=== PATIENT | male | born 1980 | race Caucasian/White ===

== ENCOUNTER 2024-01-08 06:46 | Day surgery (SDC) | payer MEDICAID ==
[~2024-01-08] VITALS: Ht 177.8 cm; Wt 77.1 kg
[2024-01-08] MEDS ORDERED: MEPERIDINE HCL/PF 25 MG/ML DISP.SYRIN ONE (07:13)
[2024-01-08] MEDS ORDERED: BENZOCAINE 20% 0.5mL UD SPRAY MM ONE (07:13)
[2024-01-08] MEDS ORDERED: MIDAZOLAM HCL 5 MG/5 ML VIAL ONE ×2 (07:13→10:14)
[2024-01-08] MEDS ORDERED: MEPERIDINE 100 MG INJ. 100 MG/ML VIAL ONE (09:49)
[2024-01-08 10:11] VITALS: O2SAT 99
[2024-01-08 19:35] VITALS: BP_SYST 96; PULSE 81; RESP 15
== END 2024-01-08 11:44 | disposition home or self-care (01) ==
LOC: SGI 06:46 → SMU 06:47 → SGI 11:44
PROVIDERS: ATTEND Internal Medicine
DX: Z12.11 Encounter for screening for malignant neoplasm of colon (principal); K29.50 Unspecified chronic gastritis without bleeding; K21.00 Gastro-esophageal reflux disease with esophagitis, without bleeding; K64.8 Other hemorrhoids; E11.9 Type 2 diabetes mellitus without complications; Z87.891 Personal history of nicotine dependence; Z79.4 Long term (current) use of insulin; Z79.899 Other long term (current) drug therapy
CPT/HCPCS: 45378; 43239; 99152; 82948; 88305; 88312; 88313; 99153; G0378; J2250; J2175